=== PATIENT | female | born 2000 ===

== ENCOUNTER 2023-12-23 12:19 | Outpatient (CLI) | payer OTHER, SELFPAY | END 2023-12-23 12:20 | disposition home or self-care (01) | PROVIDERS: PCP Internal Medicine Infectious Disease; Visit Provider Orthopaedic Surgery | DX: M25.561 Pain in right knee (principal) | CPT/HCPCS: 73564 ==

== ENCOUNTER 2023-12-31 09:24 | Outpatient (CLI) | payer OTHER, SELFPAY ==
--- NOTE | ~2023-12-31 | MR_ITS ---
MRI of the right knee Clinical history: Medial meniscus tear Technique: Coronal proton density and proton density-weighted images, sagittal proton-density and T2 fat-sat images, and axial proton-density fat-saturated images were acquired. Findings: Anterior and posterior cruciate ligaments are intact. Medial collateral ligament and the la teral collateral ligament conflux are intact. Popliteus tendon is intact. Medial and lateral menisci are intact, without evidence of tear. Articular cartilage is well preserved throughout the knee. Bone marrow signals are unremarkable. Extensor mechanism is intact. No joint effusion or Wilson's cyst. Impression: Unremarkable exam. Reviewed, dictated and finalized at location . Impression: Unremarkable exam.
== END 2023-12-31 09:25 ==
PROVIDERS: PCP Orthopaedic Surgery; Visit Provider Orthopaedic Surgery
DX: S83.241A Other tear of medial meniscus, current injury, right knee, initial encounter (principal); X58.XXXA Exposure to other specified factors, initial encounter
CPT/HCPCS: 73721